=== PATIENT | male | born 1960 | race Caucasian/White ===

== ENCOUNTER 2021-11-04 10:31 | Day surgery (SDC) | payer OTHER ==
[~2021-11-04] VITALS: Ht 172.7 cm; Wt 90.5 kg
[2021-11-04] MEDS ORDERED: CAND16 PO (10:58)
[2021-11-04] MEDS ORDERED: ATOR20 (10:58)
[2021-11-04] MEDS ORDERED: ALLO100 PO (10:59)
--- NOTE | 2021-11-04 14:39 | NUR ---
11/04/21 1439 Aditya Velázquez FENTANYL 25MCG GIVEN AT 1437 FOR 6/10 RIGHT FOOT PAIN
== END 2021-11-04 15:35 | disposition home or self-care (01) ==
LOC: ORSCSDS 10:31
PROVIDERS: Podiatrist Foot & Ankle Surgery
PROC: 0QSN04Z Reposition Right Metatarsal with Internal Fixation Device, Open Approach (ICD-10-PCS; principal; 2021-11-04 12:00)
PROC: 0SGP04Z Fusion of Right Toe Phalangeal Joint with Internal Fixation Device, Open Approach (ICD-10-PCS; principal; 2021-11-04 12:00)
DX: M20.41 Other hammer toe(s) (acquired), right foot (principal); M21.611 Bunion of right foot; S99.921D Unspecified injury of right foot, subsequent encounter; I10 Essential (primary) hypertension; E78.5 Hyperlipidemia, unspecified; Z79.899 Other long term (current) drug therapy
CPT/HCPCS: 82947; A9270; C1713; C1776; J0171; J1100; J1885; J2250; J2405; J2704; J3010

== ENCOUNTER → 2024-03-29 | Outpatient (CLI) | payer OTHER ==
[~2024-03-29] MED LIST: ALLO100 PO; ATOR20; CAND16 PO; ROSU5
[2024-03-29 16:31] LABS: BASOPHILS ABSOLUTE AUTO 0.03 K/mm3 (0.00-0.23); BASOPHILS PERCENT AUTO 0 % (0-2); EOSINOPHILS ABSOLUTE AUTO 0.14 K/mm3 (0.00-0.68); EOSINOPHILS PERCENT AUTO 2 % (0-6); Hematocrit 45.2 % (37.0-53.0); Hemoglobin 15.2 g/dL (13.5-17.5); IMMATURE GRAN ABSOLUTE AUTO 0.03 K/mm3 (0.00-0.10); IMMATURE GRAN PERCENT AUTO 0 % (0-1); LYMPHOCYTES ABSOLUTE AUTO 1.74 K/mm3 (0.84-5.20); LYMPHOCYTES PERCENT AUTO 20 % (21-46); MONOCYTES ABSOLUTE AUTO 0.75 K/mm3 (0.16-1.47); MONOCYTES PERCENT AUTO 9 % (4-13); Mean Corpuscular HGB 32.9 pg (26.0-34.0); Mean Corpuscular HGB Conc 33.6 g/dL (31.5-36.5); Mean Corpuscular Volume 98 fL (80-100); Mean Platelet Volume 9.4 fL (9.1-12.4); NEUTROPHILS PERCENT AUTO 70 % (41-73); Platelet Count 237 K/mm3 (150-400); RDW Coefficient Variation 12.1 % (11.7-14.2); RDW Standard Deviation 43.6 fL (35.1-46.3); Red Blood Cell Count 4.62 M/mm3 (4.30-5.90); White Blood Cell Count 8.79 K/mm3 (4.00-11.30)
[2024-03-29 16:56] LABS: Albumin, Blood 4.1 g/dL (3.4-5.0); Albumin/Globulin Ratio 1.4 (0.8-1.8); Bilirubin, Total 0.3 mg/dL (0.1-1.0); Bun/Creatinine Ratio 12.6 (12.0-20.0); Calcium, Blood 9.4 mg/dL (8.5-10.1); Creatinine, Blood 1.19 mg/dL (0.60-1.20); Free Thyroxine 0.91 ng/dL (0.70-1.60); Globulin, Blood 2.9 g/dL (2.2-4.0); Potassium, Blood 3.8 mmol/L (3.5-5.5); Thyroid Stimulating Hormone 3.081 uIU/mL (0.360-4.800)
== END | disposition home or self-care (01) ==
LOC: LAB SHORT 16:27
PROVIDERS: Chiropractor
DX: R53.83 Other fatigue (principal); R73.09 Other abnormal glucose
CPT/HCPCS: 80053; 83036; 84439; 84443; 85025